=== PATIENT | male | born 1965 | race Caucasian/White ===

== ENCOUNTER 2016-10-29 19:32 | Emergency (ER) | payer MEDICARE, OTHER ==
[~2016-10-29] VITALS: Ht 188 cm; Wt 82.0 kg
[2016-10-29 19:35] VITALS: BP 130/77; PULSE 82; RESP 16; TEMP 98.2; O2SAT 98
--- NOTE | 2016-10-29 21:37 | PD ---
Physical Exam Date Seen by Provider: Oct 29, 2016 Time Seen by Provider: 21:35 Narrative 51 yo male here for voluntary psych eval. States having delusions and paranoia. History of psych in the past. Takes medications. Doesn't know what they are. Symptoms worsening for 3 weeks. No other complains. He is also homeless. States that if he has "to sleep outside" he will tell people he will say he is suicidal to get [place] acted per patient. Vitals sign stable. Patient awaiting bed placement. Data Data Last Documented VS Vital Signs Date Time Temp Pulse Resp B/P Pulse Ox O2 Delivery O2 Flow Rate FiO2 10/29/16 19:35 98.2 82 16 130/77 98 Room Air [facility] Medical Record Reviewed: Yes Supervised Visit with TALA: Mateus Bagley Oct 29, 2016 21:37
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
[2016-10-29 23:12] LABS: BASOPHIL % 0.3 % (0.0-2.0); EOSINOPHIL # 0.1 TH/MM3 (0-0.4); EOSINOPHIL % 1.7 % (0.0-4.0); HEMATOCRIT 37.3 % (39.0-51.0); HEMO FLAGS DIFF FINAL; LYMPH % 31.6 % (9.0-44.0); LYMPHOCYTE # 2.2 TH/MM3 (1.0-4.8); MEAN CELL VOLUME 86.2 FL (80.0-100.0); MEAN CORPUSCULAR HEMOGLOBIN 29.9 PG (27.0-34.0); MEAN CORPUSCULAR HGB CONC 34.6 % (32.0-36.0); MONO % 7.5 % (0.0-8.0); NEUT % 58.9 % (16.0-70.0); PLATELET COUNT 207 TH/MM3 (150-450); RED BLOOD COUNT 4.32 MIL/MM3 (4.50-5.90); RED CELL DISTRIBUTION WIDTH 12.7 % (11.6-17.2); WHITE BLOOD COUNT 6.8 TH/MM3 (4.0-11.0)
[2016-10-29 23:30] LABS: AMPHETAMINE, URINE NEG (NEG); BARBITURATES, URINE NEG (NEG); COCAINE, URINE NEG (NEG)
[2016-10-30 04:14] LABS: ANION GAP 13 MEQ/L (5-15)
[2016-10-30 04:25] LABS: ACETAMINOPHEN LESS THAN 2.0 MCG/ML (10.0-30.0); ALKALINE PHOSPHATASE 117 U/L (45-117); ALT (GPT) 32 U/L (12-78); AST (GOT) 24 U/L (15-37); BICARBONATE 23.2 MEQ/L (21.0-32.0); BLOOD UREA NITROGEN 17 MG/DL (7-18); CHLORIDE 96 MEQ/L (98-107); GLOMERULAR FILTRATION RATE 70 ML/MIN (>89); POTASSIUM 3.7 MEQ/L (3.5-5.1); SODIUM (NA) 132 MEQ/L (136-145); TOTAL BILIRUBIN ADULT 0.3 MG/DL (0.2-1.0)
[2016-10-30] MEDS ORDERED: INSULIN HUMAN REGULAR 1,000 UNITS/10 ML VIAL IV PUSH ONE (04:45)
[2016-10-30] MEDS ORDERED: SODIUM CHLOR 0.9% 1000 ML INJ 1,000 ML IV ONE ×2 (04:45)
[2016-10-30] MEDS ORDERED: INSULIN HUMAN REGULAR 1,000 UNITS/10 ML VIAL SQ ONE (06:00)
[2016-10-30 08:12] VITALS: BP 132/78; PULSE 77; RESP 15; TEMP 98.3; O2SAT 98
[2016-10-30 11:00] VITALS: BP 114/59; PULSE 76; RESP 18; TEMP 98.7; O2SAT 98
== END 2016-10-30 14:28 | disposition home or self-care (01) ==
LOC: NEPD 19:32 → NEPJ 10-30 14:28
DX: F20.0 Paranoid schizophrenia (principal); E11.65 Type 2 diabetes mellitus with hyperglycemia; L55.0 Sunburn of first degree; Z79.84 Long term (current) use of oral hypoglycemic drugs; Z76.5 Malingerer [conscious simulation]
CPT/HCPCS: 80053; 80307; 85025; 96361; 96372; 96374; 99283; J1815; J7030